=== PATIENT | male | born 1985 | race African-American/Black ===

== ENCOUNTER 2017-08-26 06:28 | Emergency (ER) | payer SELFPAY ==
[2017-08-26 06:34] VITALS: BP 140/101; PULSE 90; RESP 16; TEMP 100; O2SAT 97
--- NOTE | 2017-08-26 06:37 | EDPHY ---
H & P Stated Complaint: right ear pain and sore throat for 2 days Time Seen by Provider: 08/26/17 06:35 HPI/ROS: HPI CHIEF COMPLAINT: Sore throat HISTORY OF PRESENT ILLNESS: Patient is a pleasant 31 male contents emergency room with sore throat. Patient reports he has had sore throat for the past 48 hr for chills but no recorded fever. He is able to drink and swallow appropriately. He is not drooling. No change in phonation Complains of sore throat when he swallows. Past Medical History: Denies any medical history Past Surgical History: Denies any surgical history Social History: Denies drugs alcohol tobacco. Family History: Noncontributory ROS REVIEW OF SYSTEMS: A comprehensive 10 point review of systems is otherwise negative aside from elements mentioned in the history of present illness. Exam Constitutional appears well nontoxic no distress triage nursing summary reviewed, vital signs reviewed, awake/alert. Eyes normal conjunctivae and sclera, EOMI, PERRLA. HENT posterior pharynx erythematous, TMs clear, no sign exudate, uvula midline , no signs of [employer] RPA, moist mucus membranes, no epistaxis, neck supple/ no meningismus, no raccoon eyes. Respiratory clear to auscultation bilaterally, normal breath sounds, no respiratory distress, no wheezing. Cardiovascular rate normal, regular rhythm, no murmur, no edema, distal pulses normal. Gastrointestinal soft, non-tender, no rebound, no guarding, normal bowel sounds, no distension, no pulsatile mass. Genitourinary no CVA tenderness. Musculoskeletal no midline vertebral tenderness, full range of motion, no calf swelling, no tenderness of extremities, no meningismus, good pulses, neurovascularly intact. Skin pink, warm, & dry, no rash, skin atraumatic. Neurologic awake, alert and oriented x 3, AAOx3, moves all 4 extremities equally, motor intact, sensory intact, CN II-XII intact, normal cerebellar, normal vision, normal speech. Psychiatric normal mood/affect. Heme/Lymph/Immune no lymphadenopathy. Differential Diagnosis: Plan for patient separate strep, additionally will give a dose of Decadron 10 mg p. O., and ibuprofen 800 mg for pain dull, start azithromycin as this is mostly strep pharyngitis. Medical Decision Making: Provide a prescribed for thumb, Decadron, ibuprofen. Return precautions discussed with me understands drugs of stay well-hydrated. Return if he has worsening symptoms questions concerns. Source: Patient - Personal History Current Tetanus/Diphtheria Vaccine: Yes Current Tetanus Diphtheria and Acellular Pertussis (TDAP): Yes - Medical/Surgical History Hx Asthma: No Hx Chronic Respiratory Disease: No Hx Diabetes: No Hx Cardiac Disease: No Hx Renal Disease: No Hx Cirrhosis: No Hx Alcoholism: No Hx HIV/AIDS: No Hx Splenectomy or Spleen Trauma: No Other PMH: denies Constitutional: Initial Vital Signs Temperature (C) 37.8 C 08/26/17 06:31 Heart Rate 90 08/26/17 06:31 Respiratory Rate 16 08/26/17 06:31 Blood Pressure 140/101 H 08/26/17 06:31 O2 Sat (%) 97 08/26/17 06:31 O2 Delivery Mode Room Air Allergies/Adverse Reactions: No Known Allergies Allergy (Unverified 08/26/17 06:34) Home Medications: Medication Instructions Recorded Azithromycin [Zithromax] 250 mg PO DAILY #6 tab 08/26/17 Dexamethasone [Decadron 4 MG (*)] 4 mg PO DAILY #4 tab 08/26/17 Ibuprofen [Motrin (*)] 800 mg PO Q6-8PRN #10 tab 08/26/17 Departure - Departure Disposition: Home, Routine, Self-Care Clinical Impression: Pharyngitis Qualifiers: Pharyngitis/tonsillitis etiology: streptococcus Qualified Code(s): J02.0 - Streptococcal pharyngitis Condition: Good Instructions: Pharyngitis (ED), Strep Throat (ED) Additional Instructions: 1. Drink lots of fluids stay well-hydrated. 2. Antibiotics as prescribed. 3. Return emergency if there is worse symptoms questions or concerns Referrals: NONE *PRIMARY CARE P,. [Primary Care Provider] - As per Instructions Prescriptions: Azithromycin [Zithromax] 250 mg PO DAILY #6 tab Dexamethasone [Decadron 4 MG (*)] 4 mg PO DAILY #4 tab Ibuprofen [Motrin (*)] 800 mg PO Q6-8PRN #10 tab
[2017-08-26] MEDS ORDERED: AZITHROMYCIN 250 MG TAB PO ONE (06:40)
[2017-08-26] MEDS ORDERED: DEXAMETHASONE 4 MG TAB PO ONE (06:40)
[2017-08-26] MEDS ORDERED: IBUPROFEN 800 MG TAB PO ONE (06:40)
== END 2017-08-26 07:00 | disposition home or self-care (01) ==
DX: J02.0 Streptococcal pharyngitis (principal)